=== PATIENT | male | born 1970 | race Caucasian/White ===

== ENCOUNTER 2020-09-06 07:31 | Emergency (ER) | payer OTHER, BC ==
[~2020-09-06] VITALS: Ht 175.3 cm; Wt 77.1 kg
[2020-09-06] MEDS ORDERED: ADVIL PM CAPLE1 EACH PO (07:44)
== END 2020-09-06 09:05 | disposition home or self-care (01) ==
LOC: ED 07:31
DX: S43.401A Unspecified sprain of right shoulder joint, initial encounter (principal); S63.501A Unspecified sprain of right wrist, initial encounter; S50.01XA Contusion of right elbow, initial encounter; W10.8XXA Fall (on) (from) other stairs and steps, initial encounter; Z88.5 Allergy status to narcotic agent; Z79.899 Other long term (current) drug therapy
CPT/HCPCS: 73030; 73080; 73110; 99283-25

== ENCOUNTER 2021-03-18 09:50 | Day surgery (SDC) | payer OTHER ==
[~2021-03-18] VITALS: Ht 175.3 cm; Wt 85.5 kg
[~2021-03-18 09:50] MED LIST: ADVIL PM CAPLE1 EACH PO
--- NOTE | 2021-03-18 10:39 | NUR ---
CS TRAINING ENGINEER IN TO DO R SHOULDER BLOCK.
--- NOTE | 2021-03-18 12:16 | NUR ---
1ST LITER LR INFUSED. HAD BLOCK AND RATE WAS INCREASED.
[2021-03-18] MEDS ORDERED: HYDROCODON-ACE1 EA11 PO (14:04)
[2021-03-18] MEDS ORDERED: DICLOFENAC SODI75 MG PO (14:04)
--- NOTE | 2021-03-18 14:55 | NUR ---
03/18/21 1455 Hillary Guan 1408 PT ARRIVED IN PACU NON RESPONSIVE TO NOXIOUS STIMULI WITH OPA IN PLACE. CHIN LIFT HELD BY RN. 1410 PT REACTIVE. OPA REMOVED. 1415 PT SITTING UP IN BED TALKING TO STAFF. NO C/O'S. 1420 CRYO CUFF PLACED ON R SHOULDER. 1445 TO DS. REPORT GIVEN TO RN.
--- NOTE | 2021-03-18 15:22 | NUR ---
HAVE REVIEWED [facility] INSTRUCTIONS TO PT AND . STATES THEY UNDERSTAND. REVIEWED SHOULDER IMMOBILIZER.ALSO STATES THEY UNDERSTAND.
--- NOTE | 2021-03-18 15:49 | NUR ---
HAS EATEN JELLO CRACKERS AND DRANK BROTH AND WATER.
--- NOTE | 2021-04-25 12:11 | OR ---
[facility] [address] [place], [place] [address] Signed DATE OF OPERATION: 03/18/2021 SURGEON: Ailyn Minor MD PREOPERATIVE DIAGNOSIS: SLAP tear, right shoulder. POSTOPERATIVE DIAGNOSIS: SLAP tear, right shoulder. PROCEDURE PERFORMED: Right shoulder arthroscopy with SLAP repair. RENTAL REPRESENTATIVE: Yael Aburto PA-C. Yael was present and critical for all portions of procedure. ANESTHESIA: General. BLOOD LOSS: None. IMPLANTS: 2.9 PushLock. BRIEF HISTORY: Lui is a 50-year-old gentleman with an injury to his shoulder. MRI was consistent with a possible type 3 SLAP tear. Risks and benefits of operative treatment were discussed with him, he elected to proceed. DESCRIPTION OF PROCEDURE: Once consent was obtained, he was taken to the operating room. After adequate anesthesia, he was placed in the beach chair position. All downside pressure points were well padded. The shoulder was prepped and draped in the standard sterile fashion. The shoulder was injected with 15 mL of 0.25% Marcaine with epinephrine as was subacromial space. Standard posterior portal was made and the scope was introduced into the shoulder. ARTHROSCOPIC FINDINGS: Electronically Signed By: AILYN MINOR MD 03/21/21 1644 Electronically Signed By: AILYN MINOR MD 04/08/21 0820 Electronically Signed By: AILYN MINOR MD 04/26/21 0705 PATIENT NAME: LUI IGLESIAS OPERATIVE REPORT DATE OF : 70 REPORT #: [id number] PHYSICIAN: AILYN MINOR MD PCP: NO PRIMARY CARE PHYSICIAN REPORT IS CONFIDENTIAL AND NOT TO BE RELEASED WITHOUT AUTHORIZATION [facility] [address] [place], [place] [address] Signed The rotator cuff was found to be intact. The humeral surface was intact. The labrum was intact with the exception of about a 1.5 cm area of type 3 labral tear at the biceps. It did extend about 5-6 mm down the biceps itself. The remainder of the scope was within normal limits. Standard anterior and anterior superior portals were established and the glenoid rim was debrided down to a bleeding bony bed. A tape formation around the labrum just posterior to the biceps. The drill for the PushLock was then used to drill a hole in the superior glenoid and the PushLock was deployed tensioning the labrum as we went. Excellent stability was obtained. We cut off the two suture ends. Biceps and labrum were quite stable at the end. The scope was withdrawn. Portals were closed with 3-0 nylon and dressed with Allevyn and OpSite. He tolerated the procedure well. All sponge, needle, and instrument counts were correct. Ailyn Minor MD BA/TONYAL /[id number] Copies: ~ Electronically Signed By: AILYN MINOR MD 03/21/21 0821 Electronically Signed By: AILYN MINOR MD 04/08/21 0820 Electronically Signed By: AILYN MINOR MD 04/26/21 0705 PATIENT NAME: AHRRISLUIMICHELLE LIANG OPERATIVE REPORT DATE OF : 70 REPORT #: [id number] PHYSICIAN: AILYN MINOR MD PCP: NO PRIMARY CARE PHYSICIAN REPORT IS CONFIDENTIAL AND NOT TO BE RELEASED WITHOUT AUTHORIZATION
== END 2021-03-18 16:06 | disposition home or self-care (01) ==
LOC: DS 09:50
PROVIDERS: ATTEND Specialist
PROC: 0MM24ZZ Reattachment of Left Shoulder Bursa and Ligament, Percutaneous Endoscopic Approach (ICD-10-PCS; principal; 2021-03-18 13:00)
DX: S43.431A Superior glenoid labrum lesion of right shoulder, initial encounter (principal); W18.39XA Other fall on same level, initial encounter; G89.18 Other acute postprocedural pain
CPT/HCPCS: 00450; 64415; 76942; C1713; J0330; J0461; J0690; J0735; J1100; J1885; J2250; J2405; J2704; J2765; J2795; J3010; J7121